=== PATIENT | male | born 1995 | race Caucasian/White ===

== ENCOUNTER 2021-02-08 19:45 | Emergency (ER) | payer OTHER, SELFPAY ==
[2020-01-02 09:24] VITALS: BMI 22.1
[2021-02-08 19:46] VITALS: BP 126/66; PULSE 72; RESP 18; TEMP 36.9; O2SAT 99; BMI 23.6
--- NOTE | 2021-02-08 20:08 | RAD_ITS ---
STUDY: X-RAY RIGHT FOOT, FIFTH TOE REASON FOR EXAM: Male, 25 years old. cow stepped on right foot near 5th digit TECHNIQUE: 3 view(s) of the toe were obtained. COMPARISON: None. FINDINGS: No acute fracture or dislocation. 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 Joint spaces are well-maintained. Normal alignment. Soft tissues are unremarkable. No radiopaque foreign body or soft tissue gas. RAD/Toe(s) Min 2 Views IMPRESSION: Normal x-ray of the toe. Electronically Signed: Airam Wang MD at 21:00 EDT Tel , Service support ,
--- NOTE | 2021-02-08 20:19 | ED.VIS.LOWEX ---
HPI History of Present Illness Chief Complaint: Lower Extremity Injury Detail of Chief Complaint: Cow stepped on right foot. Informant: patient Occured/Mechanism Mechanism/Context: Yes injury Onset/Context/Timing Onset: Today and Hours Context: Sudden Onset Timing: Continuous Current Severity: Mild Maximum Severity: Mild Narrative Narrative: 25-year-old male no sniffing past medical history. Child stepped on his right lateral distal foot complaining of mild pain. No other injuries. Prior similar symptoms: No Recent Illness/Hospitalization: No PFSH PFSH Medical History (Updated 02/08/21 @ 20:[address] Adi Greenwood MD) Chronic neck and back pain no medical history Home Medications NK 02/08/21 [History Last Taken Unknown] Allergy/AdvReac Type Severity Reaction Status Date / Time No Known Allergies Allergy Verified 02/08/21 19:46 Social History Smoking Status: Never smoker alcohol intake: never ROS ROS ED ROS Narrative Denies recent illness. Review of Systems ROS Unobtainable: Denies due to encephalopathy Constitutional Constitutional ED: Denies fever(s) Eyes Eyes: Denies change in vision ENT ENT ED: Denies ear pain Cardiovascular Cardiovascular: Denies chest pain Respiratory/Chest Respiratory/Chest: Denies dyspnea Gastrointestinal Gastrointestinal: Denies abdominal pain or nausea Genitourinary Genitourinary ED: Denies dysuria Musculoskeletal Musculoskeletal: Denies myalgias Integumentary Denies rash Neurologic Neurologic: Denies headache(s) Psychiatric Psychiatric: Denies depression Endocrine Endocrinology: Denies polyuria Hematologic/Lymphatic Hematologic/Lymphatic: Denies easy bruising Allergic/Immunologic Allergic/Immunologic ED: Denies urticaria EXAM Physical Exam Narrative Exam Narrative: Young male no acute distress vital signs stable afebrile. Exam normal. Right ankle nontender nonswollen no deformity. Right foot minimal tenderness to the distal right fourth and fifth metatarsals. No bony deformity. No laceration. No bruising. Foot neurovascularly intact. Const Vital Signs: 02/08/21 19:46 Temperature 98.5 F Temperature Source Temporal Pulse Rate 72 Respiratory Rate 18 Blood Pressure 126/66 H Blood Pressure Mean 86 Pulse Ox 99 Positive well nourished and well developed General Appearance ED: well developed HEENT Reports moist mucous membranes normocephalic and atraumatic; Negative for trauma or tenderness Eyes PERRL Neck full ROM and supple Thyroid: Negative for tender Chest Wall inspection of chest normal and palpation of chest normal Resp normal respiratory effort, no retractions and clear to auscultation bilaterally Cardio regular rate, regular rhythm, S1 normal heart sound, S2 normal heart sound and no murmurs GI non-tender, non-distended and no masses Auscultation: normoactive bowel sounds Palpation: soft; Negative for tender Back/Spine no CVA tenderness Extremity normal to inspection and full ROM Extremity Narrative: Very mild tenderness right distal fourth and fifth metatarsals. No bony deformity. No laceration. No bruising. No significant swelling. Right foot neurovascular intact. General Extremety ED: Negative for cyanosis or edema General Extremity: Negative for cyanosis or edema Neuro oriented x3 Sensorium / Orientation: alert, oriented to person, oriented to place and oriented to time Psych mental status grossly normal Skin Lesions: no lesions Rashes: no rashes MDM MDM MDM Narrative Medical decision making narrative: Right foot x-ray obtained no appears to have a nondisplaced fracture of the distal phalanx of the small toe. I went over the films with the patient and his mother. Radiography Diagnostic Testing: Right foot x-ray. 3 views. Interpreted by myself. Shows a nondisplaced fracture of the distal phalanx. Went over films with the patient and family. Discharge Plan Triage Chief Complaint: Lower Extremity Injury ED Provider: Adi Greenwood Dx/Rx/DC Orders Clinical Impression: Closed fracture of toe Instructions: ED Fracture, Toe, Closed Prescriptions: No Action NK RF: 0 Primary Care Provider: Care Physician,No Primary Referrals: Bhaskar Ritter MD [STAFF PHYSICIAN] - 10-14 Days if not better Care Physician,No Primary [Primary Care Provider] - Activity Restrictions/Additional Instructions: Ice and elevate your right foot 5 times a day for 20 to 30 minutes each time for the next 2 days. Motrin for pain and swelling. Follow-up if not improving in 1 to 2 weeks. Disposition Disposition: Home, Self Care
[2021-02-08 20:36] VITALS: PULSE 74; RESP 16; O2SAT 97
== END 2021-02-08 20:39 | disposition home or self-care (01) ==
LOC: ED 20:26
PROVIDERS: Emergency Provider Emergency Medicine
DX: S92.534A Nondisplaced fracture of distal phalanx of right lesser toe(s), initial encounter for closed fracture (principal); W50.0XXA Accidental hit or strike by another person, initial encounter; Y93.9 Activity, unspecified; Y92.9 Unspecified place or not applicable
CPT/HCPCS: 73660; 99282